=== PATIENT | male | born 1995 | race Caucasian/White ===

== ENCOUNTER 2018-03-12 09:20 | Emergency (ER) | payer SELFPAY ==
[~2018-03-12] VITALS: Ht 182.9 cm; Wt 74.8 kg
[2018-03-12] MEDS ORDERED: ONDA8TAB13 PO (10:39)
--- NOTE | 2018-03-12 10:39 | ED General ---
General Chief Complaint: Abdominal/GI Problems Stated Complaint: FEVER;VOMITING Nursing Triage Note: ARRIVED VIA AMB TO ROOM 08. COPLAINS OF FEVER ET VOMITING STARTING LAST NIGHT. Nursing Sepsis Screen: No Definite Risk Source of Information: Patient Exam Limitations: No Limitations History of Present Illness Date Seen by Provider: Mar 12, 2018 Time Seen by Provider: 10:35 Initial Comments to ER per private vehicle with reports of fever up to 100.5, vomiting nausea diarrhea sore throat runny nose that began last night. Timing/Duration: 1-2 Days Severity: Moderate Associated Systoms: No Cough; Malaise, Nausea/Vomiting Allergies and Home Medications Allergies Coded Allergies: Penicillins (Verified Allergy, Unknown, SWELLING OF THE THROAT, 03/12/18) Uncoded Allergies: TRIMETIC (Allergy, Unknown, FEVER, DIZZINESS, 03/12/18) Home Medications No Active Prescriptions or Reported Meds Patient Home Medication List Home Medication List Reviewed: Yes Review of Systems Review of Systems Constitutional: see HPI, chills, fever, malaise, weakness EENTM: see HPI, throat pain Respiratory: see HPI Cardiovascular: no symptoms reported Gastrointestinal: No abdominal pain; diarrhea, nausea, vomiting Genitourinary: no symptoms reported Musculoskeletal: no symptoms reported Skin: no symptoms reported Psychiatric/Neurological: No Symptoms Reported Hematologic/Lymphatic: No Symptoms Reported Immunological/Allergic: no symptoms reported Past Epmkdfk-Mvdrom-Vitntp Hx Patient Social History Alcohol Use: Denies Use Recreational Drug Use: No Smoking Status: Current Everyday Smoker Recent Foreign Travel: No Contact w/Someone Who Travel: No Recent Infectious Disease Expo: No Recent Hopitalizations: No Seasonal Allergies Seasonal Allergies: No Past Medical History Ear Surgery Respiratory: No Cardiac: No Neurological: No Genitourinary: No Gastrointestinal: Yes Ulcer Musculoskeletal: No Endocrine: No HEENT: No Cancer: No Psychosocial: No Integumentary: No Physical Exam Vital Signs Vital Signs - First Documented 03/12/18 09:24 Temp 98.3 Pulse 101 Resp 16 B/P (MAP) 138/81 (100) Pulse Ox 100 O2 Delivery Room Air Capillary Refill : Less Than 3 Seconds Height, Weight, BMI Height: 6'" Weight: 165lbs. oz. 74.814812go; BMI Method:Stated General Appearance: No Apparent Distress, WD/WN Eyes: Bilateral Eye Normal Inspection, Bilateral Eye PERRL, Bilateral Eye EOMI HEENT: PERRL/EOMI, TMs Normal Neck: Full Range of Motion, Normal Inspection; No Lymphadenopathy (L), No Lymphadenopathy (R) Respiratory: Chest Non Tender, Lungs Clear, Normal Breath Sounds, No Accessory Muscle Use, No Respiratory Distress Cardiovascular: Regular Rate, Rhythm, Normal Peripheral Pulses Gastrointestinal: Non Tender, Soft Extremity: Normal Capillary Refill, Normal Inspection Neurologic/Psychiatric: Alert, Oriented x3 Skin: Normal Color, Warm/Dry Progress/Results/Core Measures Suspected Sepsis Recent Fever Within 48 Hours: Yes Infection Criteria Present: None New/Unexplained Altered Menta: No Sepsis Screen: No Definite Risk SIRS Temperature:98.3 Pulse: 101 Respiratory Rate: 16 Blood Pressure 138 /81 Mean: 100 Results/Orders My Orders Orders - KYLE NEVES APRN Influenza A And B Antigens (03/12/18 10:33) Ibuprofen Tablet (Motrin Tablet) (03/12/18 10:45) Ondansetron Oral Dissolve Tab (Zofran (03/12/18 10:45) Vital Signs/I&O 03/12/18 09:24 Temp 98.3 Pulse 101 Resp 16 B/P (MAP) 138/81 (100) Pulse Ox 100 O2 Delivery Room Air Capillary Refill : Less Than 3 Seconds Blood Pressure Mean: 100 Departure Impression Primary Impression: Viral syndrome Disposition: 01 HOME, SELF-CARE Condition: Stable Departure-Patient Inst. Decision time for Depature: 10:37 Referrals: NO,LOCAL PHYSICIAN (PCP) Primary Care Physician Patient Instructions: VIRAL SYNDROME Add. Discharge Instructions: 1. Go to [facility] and get Pedialyte to stay hydrated. Sip on this constantly throughout the day. Small sips only though. Also use Tylenol and Motrin for fevers or body aches. Get Imodium or Equate antidiarrheal medication at [facility]. Use the nausea medication as directed. ALl discharge instructions reviewed with patient and/or family. Voiced understanding. Scripts Ondansetron (Ondansetron Odt) 8 Mg Tab.rapdis 8 MG PO Q6H PRN for NAUSEA/VOMITING, #10 TAB Prov: KYLE NEVES APRN 03/12/18 Work/School Note: Work Release Form Date Seen in the Emergency Department: Mar 12, 2018 Return to Work: Mar 15, 2018 KYLE NEVES APRN Mar 12, 2018 10:39
[2018-03-12] MEDS ORDERED: IBUPROFEN 800 MG (MOTRIN) TAB PO ONE (10:45)
[2018-03-12] MEDS ORDERED: ONDANSETRON 4 MG (ZOFRAN) ORAL DISSOLVE TAB PO ONE (10:45)
[2018-03-12 11:20] VITALS: BP 138/81
== END 2018-03-12 11:20 | disposition home or self-care (01) ==
LOC: ER 09:22
DX: B34.9 Viral infection, unspecified (principal); F17.200 Nicotine dependence, unspecified, uncomplicated; Z87.19 Personal history of other diseases of the digestive system; Z88.0 Allergy status to penicillin; Z88.8 Allergy status to other drugs, medicaments and biological substances
CPT/HCPCS: 87804

== ENCOUNTER 2018-03-16 19:11 | Emergency (ER) | payer SELFPAY ==
[~2018-03-16] VITALS: Ht 182.9 cm; Wt 74.8 kg
[~2018-03-16 19:11] MED LIST: ONDA8TAB13 PO
[2018-03-16] MEDS ORDERED: NS IV 1000 ML 1,000 ML IV ONE ×2 (20:03→22:30)
[2018-03-16] MEDS ORDERED: PANTOPRAZOLE 40 MG (PROTONIX) VIAL IV ONE (20:15)
[2018-03-16] MEDS ORDERED: ONDANSETRON 4 MG/2 ML (SDV) Z0FRAN IVP ONE (20:15)
[2018-03-16 20:17] LABS: BASOPHILS % (AUTO) 0 % (0-10); EOSINOPHILS % (AUTO) 0 % (0-10); HEMATOCRIT 39 % (40-54); HEMOGLOBIN 14.2 G/DL (13.3-17.7); LYMPHOCYTES # (AUTO) 1.1 X 10^3 (1.0-4.0); LYMPHOCYTES % (AUTO) 12 % (12-44); MEAN CORPUSCULAR HEMOGLOBIN 30 PG (25-34); MEAN CORPUSCULAR HGB CONC 36 G/DL (32-36); MEAN CORPUSCULAR VOLUME 82 FL (80-99); MEAN PLATELET VOLUME 9.7 FL (7.4-10.4); MONOCYTES # (AUTO) 1.4 X 10^3 (0.0-1.0); MONOCYTES % (AUTO) 16 % (0-12); NEUTROPHILS # (AUTO) 6.5 X 10^3 (1.8-7.8); NEUTROPHILS % (AUTO) 72 % (42-75); PLATELET COUNT 187 10^3/uL (130-400); RED BLOOD COUNT 4.78 10^6/uL (4.35-5.85); RED CELL DISTRIBUTION WIDTH 12.5 % (10.0-14.5)
[2018-03-16 20:24] VITALS: BP_SYST 102; BP_SYST 114; BP_SYST 120; BP_DIAS 74; BP_DIAS 76; BP_DIAS 85
[2018-03-16 20:32] LABS: INR 1.1 (0.8-1.4); PROTHROMBIN TIME PATIENT 14.1 SEC (12.2-14.7)
[2018-03-16 20:41] LABS: ALANINE AMINOTRANSFERASE 49 U/L (0-55); ALBUMIN 4.5 GM/DL (3.2-4.5); ALKALINE PHOSPHATASE 77 U/L (40-136); AMYLASE 31 U/L (25-125); BUN/CREATININE RATIO 16; CALCIUM 9.5 MG/DL (8.5-10.1); CARBON DIOXIDE 22 MMOL/L (21-32); CHLORIDE 103 MMOL/L (98-107); CREATININE SERUM 0.81 MG/DL (0.60-1.30); GFR ESTIMATED > 60; GLUCOSE 111 MG/DL (70-105); LIPASE 16 U/L (8-78); MAGNESIUM 2.1 MG/DL (1.8-2.4); POTASSIUM 3.4 MMOL/L (3.6-5.0); SODIUM 139 MMOL/L (135-145); TOTAL PROTEIN 7.3 GM/DL (6.4-8.2)
[2018-03-16] MEDS ORDERED: IOHEXOL 350 MG/ML 100 ML (OMNIPAQUE 350) VIAL IV ONE (21:30)
[2018-03-16] MEDS ORDERED: NS 100 ML (IVPB) BAG IV ONE (21:30)
--- NOTE | 2018-03-16 21:59 | Diagnostic Imaging Report ---
PROCEDURE: CT abdomen and pelvis with contrast, rule out appendicitis. TECHNIQUE: Multiple contiguous axial images were obtained through the abdomen and pelvis after the administration of intravenous contrast. INDICATION: Right lower quadrant pain x2 weeks with nausea, vomiting, and diarrhea. CORRELATION STUDY: None. FINDINGS: LOWER THORAX: Clear. LIVER: Liver enlarged at 20.5 cm in length. Likely small area of fatty infiltration of the left lobe of the liver along the falciform ligament. GALLBLADDER: Present and unremarkable. No bile duct dilatation. SPLEEN: Upper limits normal in size. Small splenule in the hilum. PANCREAS: Unremarkable. ADRENAL GLANDS: Unremarkable. KIDNEYS: Normal configuration. No calcification or obstruction. ABDOMINAL AORTA: Unremarkable, nonaneurysmal. Incidental note made of a retro-aortic left renal vein. Few mildly prominent but non-pathologically central and retroperitoneal lymph nodes. GASTROINTESTINAL TRACT: Stomach collapsed. There are few fluid-filled prominent loops of small bowel. No evidence for obstruction. The appendix projects posteriorly from the cecum into the right hemipelvis. The appendix is upper limits of normal at 7 mm. Some fluid within the lumen with absence of gas. Additional periappendiceal inflammatory changes not suggested. The colon is otherwise relatively collapsed. There is, however, suggestion of some wall thickening about the particularly sigmoid colon and rectum. URINARY BLADDER: Unremarkable. REPRODUCTIVE: The prostate gland and particularly the seminal vesicles do appear to be somewhat enlarged and engorged. OSSEOUS STRUCTURES: No acute abnormality. OTHER: Prominent particularly right lower quadrant ileocolic lymph nodes. Short axis dimension up to 12 mm. IMPRESSION: 1. Appendix is visualized and is upper limits of normal. Additional secondary findings to suggest acute appendicitis are not suggested. This is a somewhat equivocal finding for potential appendicitis. 2. There does appear to be some prominent and thickened loops of small bowel as well some segment of colon. Features may reflect nonspecific enteritis and colitis. 3. Rather prominent enlarged particularly right lower quadrant ileocolic lymph nodes. Favor reactive, however, are borderline pathologically enlarged. Dictated by: Dictated on workstation # [id number]
[2018-03-16 22:09] LABS: BILIRUBIN,URINE NEGATIVE (NEGATIVE); CLARITY,URINE SLIGHTLY CLOUDY; COLOR,URINE YELLOW; GLUCOSE, URINE (UA) NEGATIVE (NEGATIVE); KETONES,URINE NEGATIVE (NEGATIVE); LEUKOCYTE ESTERASE ,URINE 1+ (NEGATIVE); NITRITE,URINE NEGATIVE (NEGATIVE); PH,URINE 6.5 (5-9); PROTEIN,URINE 2+ (NEGATIVE); UROBILINOGEN,URINE 1 MG/DL (NORMAL)
--- NOTE | 2018-03-16 22:16 | Diagnostic Imaging Report ---
INDICATION: Right lower quadrant pain x2 weeks with nausea, vomiting and diarrhea. TECHNIQUE: Single view chest with supine and upright radiographs of the abdomen. CORRELATION STUDY: None FINDINGS: Frontal radiograph of the chest demonstrates no acute abnormality. Prominent gas-filled loops of bowel are noted. However, no findings to suggest obstruction with gas in the colon. No significant air-fluid levels. No pathologic intra-abdominal calcifications. IMPRESSION: 1. Negative for acute cardiopulmonary abnormality. 2. Unremarkable appearing bowel gas pattern. Dictated by: Dictated on workstation # [id number]
[2018-03-16 22:18] LABS: BACTERIA,URINE NEGATIVE /HPF; RBC,URINE RARE /HPF; WBC,URINE RARE /HPF
[2018-03-16 22:24] LABS: AMPHETAMINE SCREEN, URINE NEGATIVE (NEGATIVE); BARBITURATE SCREEN URINE NEGATIVE (NEGATIVE); BENZODIAZEPINES SCREEN URINE NEGATIVE (NEGATIVE); CANNABINOID SCREEN, URINE POSITIVE (NEGATIVE); COCAINE SCREEN URINE NEGATIVE (NEGATIVE); METHADONE STAT NEGATIVE (NEGATIVE); METHAMPHETAMINE SCREEN URINE S NEGATIVE (NEGATIVE); OPIATE SCREEN URINE NEGATIVE (NEGATIVE); OXYCODONE STAT NEGATIVE (NEGATIVE); PROPOXYPHENE STAT NEGATIVE (NEGATIVE); TRICYCLIC ANTIDEPRESSANTS SCRE NEGATIVE (NEGATIVE)
[2018-03-16] MEDS ORDERED: KETOROLAC 30 MG/ML VIAL IVP ONE (22:30)
[2018-03-16] MEDS ORDERED: HYOSCYAMINE 0.125 MG (LEVSIN) TAB PO ONE (22:30)
[2018-03-16] MEDS ORDERED: RX-HYOSCYAMINE 0.125 MG SL (LEVSIN) PPK#6 SL STA (23:11)
[2018-03-16] MEDS ORDERED: RX-ONDANSETRON 4 MG ODT (ZOFRAN) PPK #4 PO STA (23:11)
[2018-03-16] MEDS ORDERED: LACT1CAP8 PO (23:16)
[2018-03-16] MEDS ORDERED: HYOS0.1283 SL (23:16)
[2018-03-16] MEDS ORDERED: PANT40TA2 PO (23:16)
[2018-03-16] MEDS ORDERED: ONDA8TAB13 PO (23:16)
--- NOTE | 2018-03-16 23:16 | ED GI ---
General Chief Complaint: Abdominal/GI Problems Stated Complaint: FEVER,VOMITING BLOOD AFTER EATING Nursing Triage Note: Pt arrived with chief complaint of vomiting and fever since . Pt stated emesis has blood film on it. Pt stated that he can't keep his fever down and every time he tries to eat he gets sick. Pt stated he was in here on for same issue. Sepsis Screen: No Definite Risk Source of Information: Patient Allergies and Home Medications Allergies Coded Allergies: Penicillins (Verified Allergy, Unknown, SWELLING OF THE THROAT, 03/12/18) Uncoded Allergies: TRIMETIC (Allergy, Unknown, FEVER, DIZZINESS, 03/12/18) Home Medications Ondansetron 8 Mg Tab.rapdis, 8 MG PO Q6H PRN for NAUSEA/VOMITING Prescribed by: KYLE NEVES on 03/12/18 1039 Past Ecmewkh-Gnmhku-Tpxxwy Hx Patient Social History Alcohol Use: Denies Use Recreational Drug Use: No Type Used: Electronic/Vapor Recent Foreign Travel: No Contact w/Someone Who Travel: No Recent Infectious Disease Expo: No Recent Hopitalizations: No Physical Abuse: No Sexual Abuse: No Mistreated: No Fear: No Seasonal Allergies Seasonal Allergies: No Past Medical History Ear Surgery Respiratory: No Cardiac: No Neurological: No Genitourinary: No Gastrointestinal: Yes Ulcer Musculoskeletal: No Endocrine: No HEENT: No Cancer: No Psychosocial: No Integumentary: No Physical Exam Vital Signs Vital Signs - First Documented 03/16/18 19:45 Temp 99.0 Pulse 82 Resp 18 B/P (MAP) 126/75 (92) Pulse Ox 98 O2 Delivery Room Air Capillary Refill : Less Than 3 Seconds Height/Weight/BMI Height: 6'0" Weight: 165lbs. oz. 74.003572bw; BMI Method:Stated Progress/Results/Core Measures Results/Orders Lab Results Laboratory Tests Test 03/16/18 20:04 03/16/18 20:09 03/16/18 22:03 Range/Units White Blood Count 9.0 4.3-11.0 10^3/uL Red Blood Count 4.78 4.35-5.85 10^6/uL Hemoglobin 14.2 13.3-17.7 G/DL Hematocrit 39 L 40-54 % Mean Corpuscular Volume 82 80-99 FL Mean Corpuscular Hemoglobin 30 25-34 PG Mean Corpuscular Hemoglobin Concent 36 32-36 G/DL Red Cell Distribution Width 12.5 10.0-14.5 % Platelet Count 187 130-400 10^3/uL Mean Platelet Volume 9.7 7.4-10.4 FL Neutrophils (%) (Auto) 72 42-75 % Lymphocytes (%) (Auto) 12 12-44 % Monocytes (%) (Auto) 16 H 0-12 % Eosinophils (%) (Auto) 0 0-10 % Basophils (%) (Auto) 0 0-10 % Neutrophils # (Auto) 6.5 1.8-7.8 X 10^3 Lymphocytes # (Auto) 1.1 1.0-4.0 X 10^3 Monocytes # (Auto) 1.4 H 0.0-1.0 X 10^3 Eosinophils # (Auto) 0.0 0.0-0.3 10^3/uL Basophils # (Auto) 0.0 0.0-0.1 10^3/uL Prothrombin Time 14.1 12.2-14.7 SEC INR Comment 1.1 0.8-1.4 Activated Partial Thromboplast Time 36 H 24-35 SEC Sodium Level 139 135-145 MMOL/L Potassium Level 3.4 L 3.6-5.0 MMOL/L Chloride Level 103 98-107 MMOL/L Carbon Dioxide Level 22 21-32 MMOL/L Anion Gap 14 5-14 MMOL/L Blood Urea Nitrogen 13 7-18 MG/DL Creatinine 0.81 0.60-1.30 MG/DL Estimat Glomerular Filtration Rate > 60 BUN/Creatinine Ratio 16 Glucose Level 111 H 70-105 MG/DL Calcium Level 9.5 8.5-10.1 MG/DL Corrected Calcium 9.1 8.5-10.1 MG/DL Magnesium Level 2.1 1.8-2.4 MG/DL Total Bilirubin 1.0 0.1-1.0 MG/DL Aspartate Amino Transf (AST/SGOT) 42 H 5-34 U/L Alanine Aminotransferase (ALT/SGPT) 49 0-55 U/L Alkaline Phosphatase 77 40-136 U/L Total Protein 7.3 6.4-8.2 GM/DL Albumin 4.5 3.2-4.5 GM/DL Amylase Level 31 25-125 U/L Lipase 16 8-78 U/L Serum Alcohol < 10 <10 MG/DL Monoscreen NEGATIVE NEGATIVE Urine Color YELLOW Urine Clarity SLIGHTLY CLOUDY Urine pH 6.5 5-9 Urine Specific [place] 1.015 L 1.016-1.022 Urine Protein 2+ H NEGATIVE Urine Glucose (UA) NEGATIVE NEGATIVE Urine Ketones NEGATIVE NEGATIVE Urine Nitrite NEGATIVE NEGATIVE Urine Bilirubin NEGATIVE NEGATIVE Urine Urobilinogen 1 NORMAL MG/DL Urine Leukocyte Esterase 1+ H NEGATIVE Urine RBC (Auto) 1+ H NEGATIVE Urine RBC RARE /HPF Urine WBC RARE /HPF Urine Crystals NONE /LPF Urine Bacteria NEGATIVE /HPF Urine Casts NONE /LPF Urine Mucus SMALL H /LPF Urine Culture Indicated NO Urine Opiates Screen NEGATIVE NEGATIVE Urine Oxycodone Screen NEGATIVE NEGATIVE Urine Methadone Screen NEGATIVE NEGATIVE Urine Propoxyphene Screen NEGATIVE NEGATIVE Urine Barbiturates Screen NEGATIVE NEGATIVE Ur Tricyclic Antidepressants Screen NEGATIVE NEGATIVE Urine Phencyclidine Screen NEGATIVE NEGATIVE Urine Amphetamines Screen NEGATIVE NEGATIVE Urine Methamphetamines Screen NEGATIVE NEGATIVE Urine Benzodiazepines Screen NEGATIVE NEGATIVE Urine Cocaine Screen NEGATIVE NEGATIVE Urine Cannabinoids Screen POSITIVE H NEGATIVE My Orders Orders - HONEY ASENCIO DO Saline Lock/Iv-Start (03/16/18 20:03) Monitor-Rhythm Ecg Trace Only (03/16/18 20:03) Orthostatic Vital Signs (Adult (03/16/18 20:03) Alcohol (03/16/18 20:03) Amylase (03/16/18 20:03) Cbc With Automated Diff (03/16/18 20:03) Comprehensive Metabolic Panel (03/16/18 20:03) Drug Screen Stat (Urine) (03/16/18 20:03) Lipase (03/16/18 20:03) Magnesium (03/16/18 20:03) Protime With Inr (03/16/18 20:03) Partial Thromboplastin Time (03/16/18 20:03) Ua Culture If Indicated (03/16/18 20:03) Saline Lock/Iv-Start (03/16/18 20:03) Ns Iv 1000 Ml (Sodium Chloride 0.9%) (03/16/18 20:03) Ondansetron Injection (Zofran Injectio (03/16/18 20:15) Pantoprazole Injection (Protonix Injecti (03/16/18 20:15) Ct Abd/Pelv W (Appendicitis) (03/16/18 20:55) Acute Abd Series (03/16/18 20:55) Iohexol Injection (Omnipaque 350 Mg/Ml 1 (03/16/18 21:30) Ns (Ivpb) (Sodium Chloride 0.9% Ivpb Bag (03/16/18 21:30) Ns Iv 1000 Ml (Sodium Chloride 0.9%) (03/16/18 22:30) Hyoscyamine Sl Tablet (Levsin Sl Tablet) (03/16/18 22:30) Ketorolac Injection (Toradol Injection) (03/16/18 22:30) Monotest (03/16/18 22:21) Rx-Hyoscyamine Tab (Rx-Levsin Sl) (03/16/18 23:11) Rx-Ondansetron Po (Rx-Zofran Po) (03/16/18 23:11) Medications Given in ED Current Medications Medications Dose Ordered Sig/Brayan Route Start Time Stop Time Status Last Admin Dose Admin Hyoscyamine Sulfate 0.25 mg ONCE ONCE PO 03/16/18 22:30 03/16/18 22:31 DC 03/16/18 22:27 0.25 MG Iohexol 100 ml ONCE ONCE IV 03/16/18 21:30 03/16/18 21:36 DC 03/16/18 21:21 100 ML Ketorolac Tromethamine 30 mg ONCE ONCE IVP 03/16/18 22:30 03/16/18 22:31 DC 03/16/18 22:27 30 MG Ondansetron HCl 4 mg ONCE ONCE IVP 03/16/18 20:15 03/16/18 20:16 DC 03/16/18 20:39 4 MG Pantoprazole 40 mg ONCE ONCE IV 03/16/18 20:15 03/16/18 20:16 DC 03/16/18 20:40 40 MG Sodium Chloride 1,000 ml @ 0 mls/hr Q0M ONCE IV 03/16/18 20:03 03/16/18 20:05 DC 03/16/18 20:38 1,000 MLS/HR Sodium Chloride 1,000 ml @ 999 mls/hr Q1H ONCE IV 03/16/18 22:30 03/16/18 23:30 03/16/18 22:20 999 MLS/HR Vital Signs/I&O 03/16/18 03/16/18 19:45 20:24 Temp 99.0 Pulse 82 81 78 93 Resp 18 B/P (MAP) 126/75 (92) 114/76 (89) 120/85 (97) 102/74 (83) Pulse Ox 98 O2 Delivery Room Air Blood Pressure Mean: 83 Departure Impression Primary Impression: Gastroenteritis Additional Impression: Hepatomegaly Disposition: 01 HOME, SELF-CARE Condition: Improved Departure-Patient Inst. Referrals: NO,LOCAL PHYSICIAN (PCP/Family) Primary Care Physician Patient Instructions: Nonalcoholic Fatty Liver Disease (DC), Viral Gastroenteritis, Adult (DC) Add. Discharge Instructions: CLEAR LIQUIDS--WATER, BROTH, JELLO, GATORADE TOMORROW IF YOU ARE BETTER, ADD BRATS DIET TO CLEAR LIQUIDS--BANANAS, RICE, APPLESAUCE, TOAST, SALTINES FOLLOW UP WITH DR OF CHOICE IN 2-3 DAYS IF NO BETTER, RETURN TO ER IF WORSE ESTABLISH WITH LOCAL DR OF CHOICE FOR FOLLOW UP ON LIVER All discharge instructions reviewed with patient and/or family. Voiced understanding. Scripts Lactobacillus Acidophilus (Acidophilus) 1 Each Capsule 2 EACH PO QID, #80 CAP Prov: HONEY ASENCIO DO 03/16/18 Pantoprazole Sodium (Protonix) 40 Mg Tablet.dr 40 MG PO DAILY, #15 TAB Prov: HONEY ASENCIO DO 03/16/18 Hyoscyamine Sulfate (Levsin-Sl) 0.125 Mg Tab.subl 1-2 TAB SL Q4H for Abdominal Pain, #15 TAB Prov: HONEY ASENCIO DO 03/16/18 Ondansetron (Ondansetron Odt) 8 Mg Tab.rapdis 8 MG PO Q6H for Nausea/Vomiting, #10 TAB Prov: HONEY ASENCIO DO 03/16/18 HONEY ASENCIO DO Mar 16, 2018 23:16
[2018-03-16 23:24] VITALS: BP 115/74
== END 2018-03-16 23:24 | disposition home or self-care (01) ==
LOC: EDUNIT# 19:11 → ER 19:13
DX: K52.9 Noninfective gastroenteritis and colitis, unspecified (principal); R16.0 Hepatomegaly, not elsewhere classified; Z88.0 Allergy status to penicillin; Z88.8 Allergy status to other drugs, medicaments and biological substances; Z87.19 Personal history of other diseases of the digestive system; Z87.891 Personal history of nicotine dependence
CPT/HCPCS: 36415; 74022; 74177; 80053; 80306; 80320; 81000; 82150; 83690; 83735; 85025; 85610; 85730; 86308; 93041

== ENCOUNTER → 2018-05-10 | Emergency (ER) | payer SELFPAY ==
[~2018-05-10] VITALS: Ht 182.9 cm; Wt 79.4 kg
[~2018-05-10] MED LIST changes: +HYOS0.1283 SL; +LACT1CAP8 PO; +ONDA4TAB11 SL; +OSLT75C PO; +PANT40TA2 PO
[2018-05-10 11:00] VITALS: BP 123/70
--- NOTE | 2018-05-10 11:03 | ED General ---
General Chief Complaint: Fever-Adult/Adol Stated Complaint: VOMITING/COUGH Nursing Triage Note: pt presents to ed with complaints of fever, chills, malaise, chest pain, cough, and vomiting since friday. Nursing Sepsis Screen: Possible Sepsis Risk Allergies and Home Medications Allergies Coded Allergies: Penicillins (Verified Allergy, Unknown, SWELLING OF THE THROAT, 03/12/18) Uncoded Allergies: TRIMETIC (Allergy, Unknown, FEVER, DIZZINESS, 03/12/18) Home Medications Hyoscyamine Sulfate 0.125 Mg Tab.subl, 1-2 TAB SL Q4H Prescribed by: HONEY ASENCIO on 03/16/182315 Lactobacillus Acidophilus 1 Each Capsule, 2 EACH PO QID Prescribed by: HONEY ASENCIO on 03/16/182315 Ondansetron 8 Mg Tab.rapdis, 8 MG PO Q6H PRN for NAUSEA/VOMITING Prescribed by: KYLE NEVES on 03/12/18 1039 Ondansetron 8 Mg Tab.rapdis, 8 MG PO Q6H Prescribed by: HONEY ASENCIO on 03/16/182315 Ondansetron 4 Mg Tab.rapdis, 4 MG SL Q4H PRN for NAUSEA/VOMITING Prescribed by: JULIO DAVIS on 05/10/18 110 Oseltamivir Phosphate 75 Mg Cap, 75 MG PO BID Prescribed by: JULIO DAVIS on 05/10/18 110 Pantoprazole Sodium 40 Mg Tablet.dr, 40 MG PO DAILY Prescribed by: HONEY ASENCIO on 03/16/182315 Past Tuzjlja-Gglwwx-Mqrimf Hx Patient Social History Alcohol Use: Occasionally Uses Recreational Drug Use: No Drug of Choice: THC Smoking Status: Former Smoker Type Used: Cigarettes, Electronic/Vapor Former Smoker, Quit: Oct 28, 2017 Recent Foreign Travel: No Contact w/Someone Who Travel: No Recent Infectious Disease Expo: No Recent Hopitalizations: No Physical Abuse: No Sexual Abuse: No Mistreated: No Fear: No Seasonal Allergies Seasonal Allergies: No Past Medical History Surgeries: Yes (LEFT EAR SURGERY) Ear Surgery Respiratory: No Cardiac: No Neurological: No Genitourinary: No Gastrointestinal: Yes (STATES "STOMACH ULCER" DX BY "MRI" ) Ulcer Musculoskeletal: No Endocrine: No HEENT: No Cancer: No Psychosocial: No Integumentary: No Physical Exam Vital Signs Vital Signs - First Documented 05/10/18 09:48 Temp 99.5 Pulse 103 Resp 18 B/P (MAP) 103/81 (88) Pulse Ox 94 Capillary Refill : Less Than 3 Seconds Height, Weight, BMI Height: 6'" Weight: 175lbs. oz. 79.755314zg; BMI Method:Stated Progress/Results/Core Measures Suspected Sepsis Recent Fever Within 48 Hours: Yes Infection Criteria Present: Suspected New Infection New/Unexplained Altered Menta: No Sepsis Screen: Possible Sepsis Risk SIRS Temperature:99.5 Pulse: 103 Respiratory Rate: 18 Blood Pressure 103 /81 Mean: 88 Results/Orders Micro Results Microbiology 05/10/18 Influenza Types A,B Antigen (SEVERO) - Final, Complete My Orders Orders - JULIO ALANIS MD Influenza A And B Antigens (05/10/18 09:43) Vital Signs/I&O 05/10/18 09:48 Temp 99.5 Pulse 103 Resp 18 B/P (MAP) 103/81 (88) Pulse Ox 94 Capillary Refill : Less Than 3 Seconds Blood Pressure Mean: 88 Departure Impression Primary Impression: Influenza A Additional Impression: Nausea and vomiting Qualified Codes: R11.2 - Nausea with vomiting, unspecified Disposition: 01 HOME, SELF-CARE Condition: Stable Departure-Patient Inst. Decision time for Depature: 10:59 Referrals: NO,LOCAL PHYSICIAN (PCP/Family) Primary Care Physician Patient Instructions: Flu, Adult (DC) Add. Discharge Instructions: Start Tamiflu immediately for to be effective. Drink plenty of clear liquids. Gradually advance your diet with small quantities of bland food as tolerated. Use Zofran as prescribed for nausea and vomiting. Return to care if you have worsening symptoms. All discharge instructions reviewed with patient and/or family. Voiced understanding. Scripts Ondansetron (Ondansetron Odt) 4 Mg Tab.rapdis 4 MG SL Q4H PRN for NAUSEA/VOMITING, #10 TAB Prov: JULIO ALANIS MD 05/10/18 Oseltamivir Phosphate (Tamiflu) 75 Mg Cap 75 MG PO BID, #10 CAP Prov: JULIO ALANIS MD 05/10/18 Work/School Note: Work Release Form Date Seen in the Emergency Department: May 10, 2018 Return to Work: May 15, 2018 Restrictions: Return-No Fever (24hrs), Return-No Vomiting(24hrs) Other Restrictions Listed Below: To work only if free of fever/vomiting for at least 24 hrs without meds JULIO ALANIS MD May 10, 2018 11:03
== END | disposition home or self-care (01) ==
LOC: EDUNIT# 09:35 → ER 09:36
DX: J10.1 Influenza due to other identified influenza virus with other respiratory manifestations (principal); R11.2 Nausea with vomiting, unspecified; Z88.0 Allergy status to penicillin; Z88.8 Allergy status to other drugs, medicaments and biological substances; Z87.891 Personal history of nicotine dependence; Z98.890 Other specified postprocedural states; Z87.19 Personal history of other diseases of the digestive system
CPT/HCPCS: 87804